=== PATIENT | female | born 1970 | race Caucasian/White ===

== ENCOUNTER 2020-05-26 09:38 | Outpatient (REF) | payer BC, SELFPAY ==
[2020-05-26 13:40] LABS: HCT 39.4 % (36.0-46.0); HGB 12.9 g/dL (11.2-15.7); MCHC 32.7 % (32.0-36.0); MCV 88.5 fL (80-95); MPV 10.8 fL (8.0-11.0); Platelet Count 210 10^3/uL (130-400); RBC 4.45 10^6/uL (3.93-5.22); RDW 13.5 % (11.7-14.6); RDW-SD 43.9 fL; WBC 5.39 10^3/uL (4.4-10.8)
[2020-05-26 13:50] LABS: ALT 19 U/L (14-59); AST 16 U/L (15-37); Anion Gap 12.1 mmol/L (3-11); BUN 14 mg/dL (7-18); CO2 23.9 mmol/L (21.0-32.0); CREATININE 0.7 mg/dL (0.55-1.02); Calcium 8.6 mg/dL (8.5-10.1); Calculated LDL 108 mg/dL (<100); Chloride 106 mmol/L (98-107); Cholesterol 182 mg/dL (<200); Glucose 84 mg/dL (74-106); HDL Cholesterol 63 mg/dL (40-60); Sodium 142 mmol/L (136-145); Triglyceride 58 mg/dL (<150)
== END 2020-05-26 09:39 | disposition home or self-care (01) ==
LOC: NCHCN 09:38
PROVIDERS: PCP Internal Medicine; Visit Provider Nurse Practitioner Family
DX: Z00.00 Encounter for general adult medical examination without abnormal findings (principal); Z13.220 Encounter for screening for lipoid disorders; Z13.228 Encounter for screening for other metabolic disorders
CPT/HCPCS: 80048; 80061; 85027; 84450; 84460

== ENCOUNTER 2024-02-24 16:41 | Outpatient (REF) | payer BC, SELFPAY ==
--- NOTE | 2024-02-24 14:25 | PAPFT_PTH ---
PATIENT: Ele Pressley LOC: NCN #:[id number] AGE/SX: 53/F ROOM: RE02/24/[address]: Marylou Patel : 1970 BED: DIS: 02/24/2024 SPEC #: [id number] RECD: 02/25/24 12:46 STATUS: NICO REArabella #: [id number] DARLYN: 02/24/24 14:[address]: Marylou Patel DEPT: [facility] Cytology RECD BY: Mercedes Black Tissues: 1 - CX/ENDOCX FOR PAP SMEARS Procedures: PAP THIN PREP/[facility] Screening HPV DNA PROBE Comments: [id number] (HPV 16 & 18/45)
[2024-02-24 21:41] LABS: HCT 39.6 % (36.0-46.0); HGB 12.9 g/dL (11.2-15.7); MCH 28.5 pg (27.0-33.0); MCHC 32.6 % (32.0-36.0); MCV 87 fL (80-95); Platelet Count 249 10^3/uL (130-400); RBC 4.53 10^6/uL (3.93-5.22); RDW 13.7 % (11.7-14.6); RDW-SD 43.9 fL; WBC 8.13 10^3/uL (4.4-10.8)
[2024-02-24 21:57] LABS: Hemoglobin A1C 5.5 % (<5.7)
[2024-02-24 21:59] LABS: ALT 20 U/L (14-59); AST 17 U/L (15-37); Albumin 3.7 g/dL (3.4-5.0); Alkaline Phosphatase 86 U/L (46-116); Anion Gap 9.4 mmol/L (3-11); BUN 17 mg/dL (7-18); CO2 26.6 mmol/L (21.0-32.0); CREATININE 0.8 mg/dL (0.55-1.02); Calcium 9.4 mg/dL (8.5-10.1); Calculated LDL 134 mg/dL (<100); Chloride 106 mmol/L (98-107); Cholesterol 232 mg/dL (<200); Estimated GFR 89.15 (mL/min/1.73m2); Glucose 74 mg/dL (74-106); HDL Cholesterol 74 mg/dL (40-60); Potassium 4.6 mmol/L (3.5-5.1); Sodium 142 mmol/L (136-145); Total Protein 7.7 g/dL (6.4-8.2); Triglyceride 120 mg/dL (<150)
== END 2024-02-24 16:42 | disposition home or self-care (01) ==
LOC: NCHCN 16:41
PROVIDERS: PCP Nurse Practitioner Family; Visit Provider Nurse Practitioner Family
DX: Z12.4 Encounter for screening for malignant neoplasm of cervix (principal); Z00.00 Encounter for general adult medical examination without abnormal findings
CPT/HCPCS: 80053; 80061; 85027; 88142; 83036; 87624

== ENCOUNTER 2025-02-25 09:50 | Outpatient (REF) | payer BC, SELFPAY ==
[2025-02-25 21:25] LABS: HCT 41.7 % (36.0-46.0); HGB 13.4 g/dL (11.2-15.7); MCH 28.6 pg (27.0-33.0); MCHC 32.1 % (32.0-36.0); MCV 89 fL (80-95); MPV 10.4 fL (8.0-11.0); Platelet Count 235 10^3/uL (130-400); RBC 4.68 10^6/uL (3.93-5.22); RDW 14.4 % (11.7-14.6); RDW-SD 46.5 fL; WBC 7.41 10^3/uL (4.4-10.8)
== END 2025-02-25 09:51 | disposition home or self-care (01) ==
LOC: NCHCN 09:50
PROVIDERS: PCP Nurse Practitioner Family; Visit Provider Nurse Practitioner Family
DX: Z00.00 Encounter for general adult medical examination without abnormal findings (principal)
CPT/HCPCS: 80053; 85027